=== PATIENT | female | born 2000 | race African-American/Black ===

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

== ENCOUNTER → 2021-01-01 | Outpatient (CLI) | payer OTHER ==
--- NOTE | 2021-01-01 08:08 | US ---
EXAMINATION TYPE: US abdomen complete DATE OF EXAM: 01/01/2021 COMPARISON: NONE CLINICAL HISTORY: Elevated liver enzymes R74.0. EXAM MEASUREMENTS: Liver Length: 15.0 cm Gallbladder Wall: 0.1 cm CBD: 0.2 cm Spleen: 7.7 cm Right Kidney: 10 x 4.5 x 3.5 cm Left Kidney: 11.8 x 4.9 x 4.6 cm Pancreas: wnl Liver: Cyst 0.9 x 0.8 x 0.7 cm, course texture Gallbladder: wnl Evidence for sonographic Chambers's sign: No CBD: wnl Spleen: wnl, ? accessory spleen = 1.4 x 1.1 x 1.1 cm Right Kidney: No hydronephrosis or masses seen Left Kidney: No hydronephrosis or masses seen Upper IVC: wnl Abd Aorta: wnl The liver is heterogeneous. The intrahepatic portion of the IVC and proximal abdominal aorta are wit hin normal limits. There is no evidence of cholelithiasis. Common bile duct is unremarkable. The v isualized portions of the pancreas are homogenous. The spleen is unremarkable. Kidneys are symmetri c and free of hydronephrosis. No renal lesions are seen. IMPRESSION: Heterogeneous liver is nonspecific. Likely splenule.
== END | disposition home or self-care (01) ==
LOC: RADUSWWP 06:49
PROVIDERS: ATTEND Family Medicine
DX: R74.01 Elevation of levels of liver transaminase levels (principal)
CPT/HCPCS: 76700

== ENCOUNTER → 2021-12-26 | Outpatient (CLI) | payer OTHER ==
[2021-12-26 22:43] LABS: HCT 38.4 % (37.2-46.3); HGB 12.9 g/dL (12.0-15.0); MCHC 33.6 g/dL (32.0-37.0); MCV 74.4 fL (80.0-97.0); Mean Platelet Volume 12.4 fL (9.5-12.2); NRBC Per 100 WBC 0 /100 WBCS (0.0-0.0); Platelet Count 250 X 10*3/uL (140-440); RBC 5.16 X 10*6/uL (4.10-5.20); RDW 14.6 % (11.5-14.5); WBC 9.28 X 10*3/uL (4.50-10.00)
[2021-12-27 01:57] LABS: T4, Free (Free Thyroxine) 5.77 ng/dL (0.800-1.800)
--- NOTE | 2021-12-27 07:15 | US ---
EXAMINATION TYPE: US thyroid st tissue head/neck DATE OF EXAM: 12/26/2021 COMPARISON: NONE CLINICAL HISTORY: E05.90 THYROTOXICOSIS. Abnormal labs GLAND SIZE: Right Lobe: 5.5 x 2.2 x 2.7 cm Overall Parenchyma: heterogenous Left Lobe: 5.2 x 2.3 x 2.3 cm Overall Parenchyma: heterogeneous Isthmus Thickness: 0.8 cm NODULES RIGHT: # of nodules measured on right: 3 1. 0.9 X 0.8 x 0.6 cm, lower mid, mixed cystic and solid, hypoechoic nodule, which is wider than ta ll, with smooth margins, without echogenic foci. Prior size: no prior 2. 0.6 X 0.5 x 0.4 cm, upper lateral, spongiform, hypoechoic nodule, which is wider than tall, with smooth margins, without echogenic foci. Prior size: no prior 3. 0.4 X 0.4 x 0.3 cm, mid lateral, solid or almost completely solid, isoechoic nodule, which is wi cyndi than tall, with smooth margins, echogenic foci. Prior size: no prior LEFT: # of nodules measured on left: 1 1. 0.7 X 0.6 x 0.4 cm, mid mid, mixed cystic and solid, hypoechoic nodule, which is wider than tall , with smooth margins, without echogenic foci. Prior size: no prior ISTHMUS: # of nodules measured in the isthmus: 0 Bilateral neck scanned, no evidence of lymphadenopathy. Bilateral lobes appear hypervascular. IMPRESSION: Thyroidomegaly with glandular heterogeneity and subcentimeter nodularity.
== END | disposition home or self-care (01) ==
LOC: RADUSWWP 16:21
PROVIDERS: ATTEND Internal Medicine
DX: E05.90 Thyrotoxicosis, unspecified without thyrotoxic crisis or storm (principal)
CPT/HCPCS: 76536; 84439; 84443; 84445; 84450; 84460; 84481; 85027; 86376

== ENCOUNTER → 2024-05-07 | Outpatient (CLI) | payer OTHER ==
--- NOTE | 2024-05-07 15:36 | US ---
EXAMINATION TYPE: US thyroid st tissue head/neck DATE OF EXAM: 05/07/2024 COMPARISON: US(12/26/2021) CLINICAL INDICATION: Female, 23 years old with history of E04.2 NONTOXIC MULTINODULAR GOITER; F/U TECHNIQUE: Grayscale and color Doppler imaging of the thyroid gland. FINDINGS: GLAND SIZE: Right Lobe: 5.6x2.4x2.5cm Overall Parenchyma: heterogeneous Left Lobe: 5.6x2.1x3.1cm Overall Parenchyma: heterogeneous Isthmus Thickness: 0.8cm NODULES RIGHT: # of nodules measured on right: 3 1. 1.0x0.4x0.7cmmid lateral, mixed cystic and solid, hypoechoic nodule, which is wider than tall, wi th smooth margins, without echogenic foci. Prior size: 0.9x0.6x0.8cm 2. 0.7x0.5x0.5cm hypoechoic nodule, which is wider than tall, with smooth margins, without echogenic foci. Prior size: 0.6x0.4x0.5cm 3. 0.6x0.3x0.6mid, cystic or almost completely cystic, anechoic nodule, which is wider than tall, wi th smooth margins, without echogenic foci. LEFT: # of nodules measured on left: 2 1. 1.0x0.4x0.7cmmid, mixed cystic and solid, hypoechoic nodule, which is wider than tall, with cheli h margins, without echogenic foci. 2. 1.4x0.5x0.8cmmid, mixed cystic and solid, hypoechoic nodule, which is wider than tall, with smoo th margins, without echogenic foci. Prior size: 0.7x0.4x0.6cm ISTHMUS: # of nodules measured in the isthmus: 1 1. 0.8x0.4x0.9cm, which is wider than tall, with smooth margins, without echogenic foci. Bilateral neck scanned, no evidence of lymphadenopathy. IMPRESSION: Mildly Suspicious: FNA if ? 2.5 cm; Follow if ? 1.5 cm at 1, 3, and 4 y 2017 ACR TI-RADS LEVEL: TR3 *Highest TI-RADS level nodule reported [email or web address] [facility], , 05/07/2024 3:34 PM
== END | disposition home or self-care (01) ==
LOC: RADUSWWP 14:23
PROVIDERS: ATTEND Internal Medicine
DX: E04.2 Nontoxic multinodular goiter (principal)
CPT/HCPCS: 76536